=== PATIENT | male | born 1970 | race African-American/Black ===

== ENCOUNTER 2018-04-10 13:09 | Emergency (ER) | payer OTHER ==
[~2018-04-10] VITALS: Ht 172.7 cm; Wt 100.7 kg
[2018-04-10] MEDS ORDERED: HYDROcodone/APAP 5/325MG 1 TAB TABLET PO ONE (13:30)
[2018-04-10] MEDS ORDERED: HYDR-2758 PO (13:42)
--- NOTE | 2018-04-10 13:42 | PHYS DOC ---
Past History Past Medical History: Anxiety, Depression Past Surgical History: Other Alcohol Use: None Drug Use: None Adult General Chief Complaint Chief Complaint: LOWEREXTREMITY INJURY HPI HPI 47-year-old male presenting to the emergency department today with left knee injury while playing basketball [facility]. He reports twisting it and falling. Afterwards she reports his patella was up high but then came back down. He has pain when he tries to put weight down on his left knee. He denies any other injuries. He denies hip pain or ankle pain. The pain in his knee is a sharp shooting pain that is nonradiating moderate to severe intermittent and worse with walking. Review of systems is negative for chest pain shortness of breath head injury loss of consciousness or neck pain. All other review of systems is negative unless otherwise noted in history of present illness. ED course: 47-year-old gentleman presenting to the emergency department with left knee injury after playing basketball. X-rays were obtained which show distal quadriceps thickening and irregularity chronic tendinosis versus partial tear, also patellar thickening at the tendon may be secondary to patellar tendinosis. On exam the patient is unable to extend at the knee joint. His history is concerning for possible quadriceps tendon rupture. I cannot exclude this at this point. I discussed the case with our orthopedic surgeon who recommended transfer for MRI of the knee to fully exclude quadriceps tendon rupture given it is the time sensitive diagnosis. The patient was then transferred to [facility] for an MRI of the knee. Dr. Robledo accepts patient for transfer from ED to ED. Review of Systems Review of Systems SEE ABOVE. Current Medications Current Medications Current Medications Medications (Trade) Dose Ordered Sig/Freddy Start Time Stop Time Status Last Admin Dose Admin Acetaminophen/ Hydrocodone Bitart (Lortab 5/325) 2 tab 1X ONCE 04/10/18 13:30 04/10/18 13:31 UNV Allergies Allergies Allergies Coded Allergies Type Severity Reaction Last Updated Verified iodine Allergy Unknown 04/10/18 Yes Physical Exam Physical Exam SEE ABOVE Constitutional: Well developed, well nourished, no acute distress, non-toxic appearance. [] HENT: Normocephalic, atraumatic, bilateral external ears normal, oropharynx moist, no oral exudates, nose normal. [] Eyes: PERRLA, EOMI, conjunctiva normal, no discharge. [] Neck: Normal range of motion, no tenderness, supple, no stridor. [] Cardiovascular:Heart rate regular rhythm, no murmur [] Lungs & Thorax: Bilateral breath sounds clear to auscultation [] Abdomen: Bowel sounds normal, soft, no tenderness, no masses, no pulsatile masses. [] Skin: Warm, dry, no erythema, no rash. [] Back: No tenderness, no CVA tenderness. [] Extremities: The patient's left knee has mild effusion. The patella is in normal anatomic position and is not high riding. Patient is unable to extend his knee. He has 5/ 5 strength on flexion of the knee joint. The knee joint is stable. No laxity with valgus or varus stress testing. Normal posterior and anterior drawer test. Normal Dmitri's test. The patient's left foot is neurovascularly intact 2 second cap refill normal motor and sensory function of the left foot. The remainder the extremities are nontender with normal range of motion and neurovascularly intact. Neurologic: Alert and oriented X 3, normal motor function, normal sensory function, no focal deficits noted. [] Psychologic: Affect normal, judgement normal, mood normal. [] Current Patient Data Vital Signs Vital Signs Date Time Temp Pulse Resp B/P (MAP) Pulse Ox O2 Delivery O2 Flow Rate FiO2 04/10/18 13:31 20 Room Air 04/10/18 13:09 97.7 81 98 EKG EKG [] Radiology/Procedures Radiology/Procedures [] Course & Med Decision Making Course & Med Decision Making Pertinent Labs and Imaging studies reviewed. (See chart for details) [] Dragon Disclaimer Dragon Disclaimer This electronic medical record was generated, in whole or in part, using a voice recognition dictation system. Departure Departure: Impression: Primary Impression: Left knee injury Disposition: XFER [facility] ([facility]) Referrals: PCP,NO (PCP) Patient Instructions: Knee Pain Additional Instructions: Thank you for allowing us to participate in your care today. Followup with your primary care physician in 3 days if your symptoms do not improve. Call your Primary Doctor tomorrow and inform them of your visit today. If you do not have a primary care provider you can ask for a list of our primary care providers. Return to the emergency department you have any new or concerning findings. This should be evaluated by the primary care physician and any necessary consulting services for continued management within a few days after discharge. Return to emergency room if you have any new or concerning symptoms including but not limited to fever, chills, nausea, vomiting, intractable pain, any new rashes, chest pain, shortness of air, uncontrolled bleeding, difficulty breathing, and/or vision loss. If at any time, you are having difficulty getting into your primary care doctor or a specialist, return to the emergency department. You may have been prescribed medication or given medication in the emergency department that can change in your level of thinking and ability to operate machinery. These medications include hydrocodone and Ativan. Also, Benadryl has been known to do this as well. Be sure to check with your pharmacist and ask if the medications you've prescribed can affect your level of consciousness. I recommend not operating heavy machinery or driving while on medication such as these. Scripts Hydrocodone Bit/Acetaminophen (HYDROCODONE-APAP 5-325 ) 1 Each Tablet 1 TAB PO PRN Q6HRS PRN for PAIN, #10 TAB 0 Refills Prov: ALEXIA EDWARDS MD 04/10/18 ALEXIA EDWARDS MD Apr 10, 2018 13:42
--- NOTE | 2018-04-10 14:53 | RAD ---
4 views left knee 04/10/2018 CLINICAL INDICATION: Left knee pain after fall. COMPARISON: None. FINDINGS: There is moderate patellar thickening with enthesophyte formation adjacent to the inferior pole of the patella. There is mild edema in Hoffa's fat pad. There is moderate thickening of the quadriceps tendon near its insertion onto the patella. No acute fracture or traumatic malalignment. No acute fracture or traumatic malalignment. IMPRESSION: 1. Significant distal quadriceps tendon thickening and irregularity. Findings may be due to chronic tendinosis, however partial tear cannot be excluded. 2. Moderate patellar tendon thickening with Hoffa's fat pad edema, may be sequela of patellar tendinosis. Clinical correlation is recommended and MRI should be considered for further evaluation. Electronically signed by: Ino Machado MD (04/10/2018 2:49 PM) [facility]
[2018-04-10 15:43] VITALS: BP 110/67
== END 2018-04-10 15:45 | disposition short-term general hospital (02) ==
LOC: ER 13:09
DX: S89.92XA Unspecified injury of left lower leg, initial encounter (principal); Z91.041 Radiographic dye allergy status; X50.1XXA Overexertion from prolonged static or awkward postures, initial encounter; Y93.67 Activity, basketball; Y99.8 Other external cause status; Y92.89 Other specified places as the place of occurrence of the external cause
CPT/HCPCS: 29505; 73564; 99285-25